=== PATIENT | female | born 1945 | race Caucasian/White ===

== ENCOUNTER 2016-10-28 12:02 | Observation (INO) | payer MEDICARE, OTHER ==
--- NOTE | 2016-10-28 13:01 | ERNOTE ---
Dizziness ER Record Presenting Symptoms: dizziness Time Seen by Provider: 10/28/16 12:26 Source: patient Immunizations: IMMUNIZATION HX Immunizations Up to Date Yes History of Influenza Vaccine Yes Hx Pneumococcal Vaccination Yes Allergies/Adverse Reactions: Allergies Allergy/AdvReac Type Severity Reaction Status Date / Time codeine AdvReac Mild Nausea Verified 10/28/16 12:15 Home Medications: HOME MEDICATIONS Aspirin 81 mg PO DAILY 10/28/16 [Last Taken Unknown] Atenolol [Tenormin] 25 mg PO DAILY 10/28/16 [Last Taken Unknown] Atorvastatin Calcium [Lipitor] 40 mg PO HS 10/28/16 [Last Taken Unknown] Calc/D3/Mag/Zn/Renetta/Georges/[place] [Calcium 600 mg Plus Vit D Tab] 1 each PO DAILY 10/28/16 [Last Taken Unknown] Escitalopram Oxalate [Lexapro] 20 mg PO DAILY 10/28/16 [Last Taken Unknown] Levothyroxine Sodium [Synthroid] 100 mcg PO DAILY 10/28/16 [Last Taken Unknown] Omeprazole [Prilosec] 20 mg PO DAILY 10/28/16 [Last Taken Unknown] - History of Present Illness Narrative: Starting earlier this morning patient had an episode where there was some numbness and tingling around the lips, that has resolved now however while driving on the highway she developed the sudden onset of dizziness, tunnel vision and a posterior headache. The dizziness and the television have resolved and but has persisted and has been a posterior headache, however she states she has chronic posterior headaches. She rates the headache as a 45 on scale of 1-10 and other than her chronic headache she feels back to baseline. Timing and Duration: sudden onset, gone now Noted on awakening:: No Severity: max: moderate Severity: currently: gone Associated Symptoms: Present: headache, light headedness Sense of movement: Present: spinning Decreased ability to stand/walk:: Present: walks w/o assistance Usually:: Present: walks w/o assistance Modifying Factors - (Improves): Reports: nothing Modifying Factors - (Worsens): Reports: nothing Review of Systems - Review of Systems Constitutional: Present: See HPI EYE: Present: no symptoms reported ENT: Present: no symptoms reported Respiratory: Present: no symptoms reported Cardiology: Present: no symptoms reported Gastrointestinal/Abdominal: Present: no symptoms reported Genitourinary: Present: no symptoms reported Musculoskeletal: Present: no symptoms reported Skin: Present: no symptoms reported Neurological: Present: headache Endocrine: Present: no symptoms reported Hematologic/Lymphatic: Present: no symptoms reported Psych: Present: no symptoms reported - Patient's Past Medical History Patient History - Medical: Anxiety, Depression, Hypothyroidism Patient History - Cardiac/Respiratory: Hypertension, Hyperlipidemia, Myocardial Infarction Patient History - Cancer: No Hx of Cancer Patient History - Surgical Procedures: Angioplasty, Cardiac stent, Total Knee Replacement, Tubal Ligation, T & A Patient History - Other: None - Social History Living Situations: home Abuse History: No History of abuse Psych History: Hx of Anxiety, Hx of Depression, Current tx/ever been on anti- depressants or anti-anxiety meds Smoking Status: Never smoker Have you smoked in the past 12 months: No Do you dip or chew tobacco: No Alcohol Use: none Drug Use: none - Immunizations Immunizations Up to Date: Yes Hx Pneumococcal Vaccination: Yes History of Influenza Vaccine: Yes Physical Exam - Physical Exam General Appearance: Present: wd/wn, alert, mild distress - primarily the posterior headache Eye Exam: Normal inspection: bilateral, PERRL: bilateral Ears, Nose, Throat: Present: normal ENT inspection, H, normal pharynx Neck: Present: normal inspection, nontender Respiratory: Present: no respiratory distress, normal breath sounds, no accessory muscle use, chest nontender, lungs clear Cardiovascular/Chest: Present: regular rate, rhythm, no murmur, normal peripheral pulses Gastrointestinal/Abdominal: Present: normal bowel sounds, nontender, nondistended, soft, no organomegaly Rectal Exam: Present: deferred Back Exam: Present: normal inspection, normal range of motion Extremity Exam: Present: normal inspection, non-tender, no edema, normal range of motion Neurological Exam: Present: alert, oriented, normal mood/affect, no motor/ sensory deficits, 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 - Vital Signs Patient's Vital Signs:: I have reviewed the patient's vital signs. Vital Signs: Vital Signs 10/28/16 12:13 Temperature 36.8 C Pulse Rate 64 Respiratory 17 Rate Blood Pressure 174/95 O2 Sat by Pulse 97 Oximetry - EKG EKG: NSR - CT/Ultrasound CT/Ultrasound Narrative: CT of the head was reviewed - Progress/Reassessment Chief Complaint: Dizziness Plan - Plan Plan: While it is somewhat reasonable to assume that the patient simply had an attack of vertigo coupled with a migraine, however we need to at least entertain the possibility of this being a TIA and I believe the patient would benefit from at least an overnight observation and neuro checks and an MR a MRI of the head and neck tomorrow. Dr. Bush has agreed to admit the patient for all the appropriate testing. 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
[2016-10-28 13:04] LABS: Hematocrit 40.4 % (37.0-47.0); Hemoglobin 13.8 gm/dL (12.5-16.0); Mean Cell Volume 89.4 fl (78-100); Mean Corpuscular Hemoglobin 30.5 pg (27-31); Mean Corpuscular Hgb Conc 34.2 g/dl (32-36); Mean Platelet Volume 8.1 fl (6.0-9.5); Neutrophil # 5.5 K/mm3 (1.3-6.0); Neutrophil % 65.3 % (42-75.0); Platelet Count 351 K/mm3 (150-450); Red Blood Count 4.52 M/mm3 (4.2-5.4); Red Cell Distribution Width 13.4 % (11.5-14.0); White Blood Count 8.4 K/mm3 (4.0-10.5)
[2016-10-28 13:16] LABS: INR 0.96 INR (0.90-1.10)
[2016-10-28 13:19] LABS: Albumin * 3.9 gm/dl (3.4-5.0); Anion Gap 11.4 mmol/L (6.8-13.8); BUN/Creatinine Ratio 12.5 (9.0-21.6); Bilirubin, Total 0.6 mg/dL (0.0-1.1); Ca. Corrected For Albumin 9.3 mg/dL (8.4-10.2); Calcium * 9.5 mg/dL (7.9-10.9); Carbon Dioxide 29.8 mmol/L (24-32.6); Magnesium 2.1 mg/dL (1.2-2.8); Potassium 4.2 mmol/L (3.4-4.6); Total Protein 8.2 gm/dL (6.2-8.2)
[2016-10-28] MEDS ORDERED: METOCLOPRAMIDE HCL 5 MG/ML VIAL IV ONE (15:06)
[2016-10-28] MEDS ORDERED: diphenhydrAMINE HCL 50 MG/ML VIAL IV ONE (15:06)
[2016-10-28] MEDS ORDERED: diphenhydrAMINE HCL 50 MG/ML VIAL ONE (15:07)
[2016-10-28] MEDS ORDERED: METOCLOPRAMIDE HCL 5 MG/ML VIAL ONE (15:08)
--- NOTE | 2016-10-28 20:09 | HP ---
Chief Complaint - Chief Complaint Date of Service: 10/28/16 Time of Service: 20:09 Chief Complaint: headache and dizziness History of Present Illness: Joan is a 71 year old female patient of Dr. Dominguez with a PMH of CAD, IA x2 , anxiety/depression, HTN, HLD, GERD, Osetoporosis and hypothyroidism who presented to the ER with c/o headache and dizziness. The patient states that prior to arrival in the ER she developed throbbing and tingling on the back right side of her head for 2 minutes. At this point, it felt as though her head was disconnected and she pulled off to the shoulder of the road. She also developed blurred vision for 5 minutes. 2 weeks ago she developed periodic headaches as well. 2 months ago her , at the age of 71, from COPD. Patient does have a history of migraines, approximately 1-2 per year, but states that these went away. Patient to be admitted for TIA and headache for further workup. - Patient's Past Medical History Patient History - Medical: Anxiety, Depression - 01/13/2014, GERD, Hypothyroidism , Osteoporosis Patient History - Cardiac/Respiratory: Coronary Heart Disease - 04/19/2013, Hypertension, Hyperlipidemia, Myocardial Infarction - inferior IA 1996; inferior IA 05/2007 Patient History - Cancer: No Hx of Cancer Patient History - Surgical Procedures: Angioplasty - angioplasty to circ 1996, Colonoscopy - 2006-WNL, Cardiac stent - stent to RCA 05/2007, Total Knee Replacement - right, 04/22/2006, Tubal Ligation, T & A - 1961, Other - breast bx- 1986-benign; breast [id number]; Patient History - Other: None LMP (females 10-50): Menopausal - Family History Father Family History - Medical: Family History - Cardiac/Respiratory: No pertinent hx Family History - Cancer: Lung Mother Family History - Medical: Family History - Cardiac/Respiratory: Coronary Heart Disease, Myocardial Infarction, Other - AAA; Family History - Cancer: No pertinent family hx - Social History Living Situations: alone Abuse History: No History of abuse Psych History: Hx of Anxiety, Hx of Depression, Current tx/ever been on anti- depressants or anti-anxiety meds Smoking Status: Former smoker - 1 PPD x 17 years - quit at age 38. Have you smoked in the past 12 months: No Do you dip or chew tobacco: No Patient requests Smoking Cessation Consult: No Initiate information on Smoking Cessation: No Alcohol Use: none Drug Use: none - Immunizations Immunizations Up to Date: Yes Hx Pneumococcal Vaccination: Yes History of Influenza Vaccine: Yes Immunizations: IMMUNIZATION HX Immunizations Up to Date Yes History of Influenza Vaccine Yes Hx Pneumococcal Vaccination Yes Allergies/Adverse Reactions: Allergies Allergy/AdvReac Type Severity Reaction Status Date / Time codeine AdvReac Mild Nausea Verified 10/28/16 15:50 Home Medications: HOME MEDICATIONS Aspirin 81 mg PO DAILY 10/28/16 [Last Taken Unknown] Atenolol [Tenormin] 25 mg PO HS 10/28/16 [Last Taken Unknown] Atorvastatin Calcium [Lipitor] 40 mg PO HS 10/28/16 [Last Taken Unknown] Calc/D3/Mag/Zn/Renetta/Georges/[place] [Calcium 600 mg Plus Vit D Tab] 1 each PO DAILY 10/28/16 [Last Taken Unknown] Escitalopram Oxalate [Lexapro] 20 mg PO DAILY 10/28/16 [Last Taken Unknown] Levothyroxine Sodium [Synthroid] 100 mcg PO DAILY 10/28/16 [Last Taken Unknown] Omeprazole [Prilosec] 20 mg PO DAILY 10/28/16 [Last Taken Unknown] Exam - Exam Vital Signs: Vital Signs - Last Taken Temp 36.4 C L 10/28/16 18:20 Pulse 70 10/28/16 18:20 Resp 20 10/28/16 18:20 BP 123/81 10/28/16 18:20 Pulse Ox 97 10/28/16 18:20 Constitutional: Present: Alert, Cooperative, No distress ENT Exam: Present: hearing grossly normal Eye Exam: bilateral eye: normal inspection, PERRL Neck: Present: full range of motion, supple Back Exam: Present: normal inspection, no vertebral tenderness Breasts: Present: Exam deferred Respiratory: Present: normal breath sounds, no respiratory distress, no accessory muscle use Cardiovascular/Chest: Present: normal peripheral pulses, regular rate, rhythm, no chest tenderness, no murmur Peripheral Pulses: dorsalis-pedis (R): 2+, dorsalis-pedis (L): 2+, radial (R): 2 +, radial (L): 2+ Abdomen: Present: Normal bowel sounds, soft, nontender, nondistended /Rectal: Present: Exam deferred Extremity: Present: non-tender, normal inspection, no calf tenderness Skin Exam: Present: normal color, warm/dry, no cyanosis Neurologic: Present: alert, oriented x 3, other - right [id number] abnormal. all other neurological tests wnl. Appearance: Present: appropriate appearance, appropriate insight, neat Diagnostic Studies: Laboratory Results WBC 8.4 K/mm3 (4.0-10.5) 10/28/16 13:00 RBC 4.52 M/mm3 (4.2-5.4) 10/28/16 13:00 Hgb 13.8 gm/dL (12.5-16.0) 10/28/16 13:00 Hct 40.4 % (37.0-47.0) 10/28/16 13:00 MCV 89.4 fl (78-100) 10/28/16 13:00 MCH 30.5 pg (27-31) 10/28/16 13:00 MCHC 34.2 g/dl (32-36) 10/28/16 13:00 RDW 13.4 % (11.5-14.0) 10/28/16 13:00 Plt Count 351 K/mm3 (150-450) 10/28/16 13:00 MPV 8.1 fl (6.0-9.5) 10/28/16 13:00 Immature Gran % (Auto) 0.40 % (0.001-0.429) 10/28/16 13:00 Immature Gran # (Auto) 0.03 K/mm3 (0.000-0.0310) 10/28/16 13:00 Neutrophils % 65.3 % (42-75.0) 10/28/16 13:00 Lymphocytes % 20.8 % (20-51) 10/28/16 13:00 Monocytes % 8.5 % (0.0-9) 10/28/16 13:00 Eosinophils % 3.6 % (0.0-3.0) H 10/28/16 13:00 Basophils % 1.4 % (0.0-1.0) H 10/28/16 13:00 Nucleated RBC % 0.0 k/mm3 (0-1) 10/28/16 13:00 Neutrophils # 5.5 K/mm3 (1.3-6.0) 10/28/16 13:00 Lymphocytes # 1.7 k/mm3 (1.5-3.5) 10/28/16 13:00 Monocytes # 0.7 k/mm3 (0.0-1.0) 10/28/16 13:00 Eosinophils # 0.3 k/mm3 (0.0-0.7) 10/28/16 13:00 Absolute Basophils 0.1 k/mm3 (0.0-0.1) 10/28/16 13:00 PT 10.0 Seconds (9.4-11.4) 10/28/16 13:00 INR (Anticoag Therapy) 0.96 INR (0.90-1.10) 10/28/16 13:00 PTT ([place]) 27.0 Seconds (24-32) 10/28/16 13:00 Sodium 138 mmol/L (132-142) 10/28/16 13:00 Plasma Sodium 138 mmol/L (130-142) 10/28/16 13:00 Potassium 4.2 mmol/L (3.4-4.6) 10/28/16 13:00 Chloride 101 mmol/L (97-106) 10/28/16 13:00 Carbon Dioxide 29.8 mmol/L (24-32.6) 10/28/16 13:00 Anion Gap 11.4 mmol/L (6.8-13.8) 10/28/16 13:00 BUN 10 mg/dL (3-23) 10/28/16 13:00 Creatinine 0.80 mg/dL (0.4-1.4) 10/28/16 13:00 Est GFR (Non-Af Amer) 75 mL/min (60-130) 10/28/16 13:00 BUN/Creatinine Ratio 12.5 (9.0-21.6) 10/28/16 13:00 Random Glucose 130 mg/dL (70-110) H 10/28/16 13:00 Calcium 9.5 mg/dL (7.9-10.9) 10/28/16 13:00 Calcium Adj for Albumin 9.3 mg/dL (8.4-10.2) 10/28/16 13:00 Magnesium 2.1 mg/dL (1.2-2.8) 10/28/16 13:00 Total Bilirubin 0.6 mg/dL (0.0-1.1) 10/28/16 13:00 AST 25 U/L (0-48) 10/28/16 13:00 ALT 40 U/L (19-67) 10/28/16 13:00 Alkaline Phosphatase 83 U/L (50-170) 10/28/16 13:00 Total Protein 8.2 gm/dL (6.2-8.2) 10/28/16 13:00 Albumin 3.9 gm/dl (3.4-5.0) 10/28/16 13:00 Assessment/Plan - Narrative Narrative: TIA - monitor on telemetry - vital signs q 4 hours - MRI of brain in am - MRA of head in am - carotid dopplers in am - further recommendations based on MRI/MRA/Carotids - up with assistance. Headache - patient's description sounds like a tension head, although patient does have a history of migraine headaches in the past - likely exacerbated by recent of patient's . - patient given reglan iv and benadryl iv in ER with relief. 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 transplanted heart: [place] heart Associated angina: without angina Qualified Code(s): I25.10 - Atherosclerotic heart disease of [place] coronary artery without angina pectoris (4) Hx of myocardial infarction Problem: Chronic (5) HTN (hypertension) Problem: Chronic Qualifiers: Hypertension type: essential hypertension Qualified Code(s): I10 - Essential (primary) hypertension (6) HLD (hyperlipidemia) Problem: Chronic Qualifiers: Hyperlipidemia type: unspecified Qualified Code(s): E78.5 - Hyperlipidemia , unspecified (7) Anxiety and depression Problem: Chronic (8) Hypothyroid Problem: Chronic Qualifiers: Hypothyroidism type: acquired Qualified Code(s): E03.9 - Hypothyroidism, unspecified (9) Hx of migraine headaches Problem: Chronic
[2016-10-28] MEDS ORDERED: ATENOLOL 50 MG TABLET ONE (20:20)
[2016-10-28] MEDS ORDERED: ATENOLOL 25 MG TABLET PO SCH (21:00)
[2016-10-28] MEDS ORDERED: ATORVASTATIN CALCIUM 40 MG TABLET PO SCH (21:00)
[2016-10-29] MEDS: LEVOTHYROXINE SODIUM 100 MCG TABLET PO SCH ×2 (05:11→08:33)
--- NOTE | 2016-10-29 05:50 | PN ---
Subjective - Date and Time Seen Date: 10/29/16 Time: 05:40 Subjective Narrative: states she is feeling much better. denies headache. denies weakness. does states she gets claustrophobic with MRI exams. Objective - Review of Systems Generalized/Overall Review: Reports: No Symptoms Reported EENTM: Reports: No Symptoms Reported Respiratory: Reports: No Symptoms Reported Cardiac: Reports: No Symptoms Reported Abdominal: Reports: No Symptoms Reported Genitourinary Symptoms: Reports: No Symptoms Reported Musculoskeletal Complaints: Reports: No Symptoms Reported Neurological: Reports: No Symptoms Reported Skin: Reports: No Symptoms Reported Endocrine: Reports: No Symptoms Reported Misc: All systems neg except as marked - Vitals Vitals: Last Vital Signs Temp 36.7 C 10/29/16 02:15 Pulse 64 10/29/16 02:15 Resp 19 10/29/16 02:15 BP 115/54 10/29/16 02:15 Pulse Ox 96 10/29/16 02:15 - Exam Constitutional: Present: Alert, Oriented x3, Cooperative, No distress ENT Exam: Present: hearing grossly normal Neck: Present: full range of motion, supple Breasts: Present: Exam deferred Respiratory: Present: normal breath sounds, no respiratory distress, no accessory muscle use Cardiovascular/Chest: Present: normal peripheral pulses, regular rate, rhythm, systolic murmur - 2-3/6 Abdomen: Present: Normal bowel sounds, soft, nontender, nondistended /Rectal: Present: Exam deferred Extremity: Present: non-tender, normal inspection, no calf tenderness Skin Exam: Present: normal color, warm/dry, no cyanosis Assessment/Plan Plan Narrative: TIA - monitor on telemetry - vital signs q 4 hours - MRI of brain today - Valium ordered for pre-medication per patient request. - MRA of head today - carotid dopplers today - further recommendations based on MRI/MRA/Carotids - up with assistance. - symptoms have resolved per patient Headache - patient's description sounds like a tension head, although patient does have a history of migraine headaches in the past - likely exacerbated by recent of patient's . - patient given reglan iv and benadryl iv in ER with relief. 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 transplanted heart: [place] heart Associated angina: without angina Qualified Code(s): I25.10 - Atherosclerotic heart disease of [place] coronary artery without angina pectoris (4) Hx of myocardial infarction Problem: Chronic (5) HTN (hypertension) Problem: Chronic Qualifiers: Hypertension type: essential hypertension Qualified Code(s): I10 - Essential (primary) hypertension (6) HLD (hyperlipidemia) Problem: Chronic Qualifiers: Hyperlipidemia type: unspecified Qualified Code(s): E78.5 - Hyperlipidemia , unspecified (7) Anxiety and depression Problem: Chronic (8) Hypothyroid Problem: Chronic Qualifiers: Hypothyroidism type: acquired Qualified Code(s): E03.9 - Hypothyroidism, unspecified (9) Hx of migraine headaches Problem: Chronic
[2016-10-29] MEDS ORDERED: PANTOPRAZOLE SODIUM 20 MG TABLET.DR PO SCH (07:00)
[2016-10-29] MEDS ORDERED: ESCITALOPRAM OXALATE 10 MG TAB PO SCH (09:00)
[2016-10-29] MEDS ORDERED: ASPIRIN 81 MG TAB.CHEW PO SCH (09:00)
[2016-10-29 10:23] VITALS: BP 155/84
[2016-10-29] MEDS ORDERED: DIAZEPAM 5 MG TABLET PO PRN ×2 (11:00→12:00)
--- NOTE | 2016-10-29 17:01 | DS ---
(1) blurred vision followed by headache Problem: Acute (2) CAD (coronary artery disease) Diagnosis(s): S/P IWMI - 1996[ angioplasty CX; S/P IWMI-2007 [ stent to RCA x2]. Problem: Chronic Qualifiers: Coronary Disease-Associated Artery/Lesion type: [place] artery [place] vs. transplanted heart: [place] heart (3) HLD (hyperlipidemia) Problem: Chronic Qualifiers: Hyperlipidemia type: unspecified Qualified Code(s): E78.5 - Hyperlipidemia , unspecified (4) HTN (hypertension) Problem: Chronic Qualifiers: Hypertension type: essential hypertension Qualified Code(s): I10 - Essential (primary) hypertension (5) Chronic GERD Problem: Chronic (6) Hypothyroidism Problem: Chronic Qualifiers: Hypothyroidism type: unspecified Qualified Code(s): E03.9 - Hypothyroidism , unspecified Description of Stay: DATE OF ADMISSION: 10/28/2016. DATE OF DISCHARGE: 10/29/2016. DIAGNOSTICS: CT HEAD W/O 10/28/2016. MRI BRAIN: 10/29/2016. MRA HEAD: 10/29/2016. CAROTID ULTRASOUND: 10/29/2016. DISCHARGE SUMMARY: Joan Staples is a 71-year-old WF with a history of HTN, HLD, CAD who was driving felt disoriented and pulled off the road. She had blurred vision for about 5 minutes. She had intermittent headaches for the last 2 weeks and was under stress as her of COPD 2 months ago. Evaluation in the ER was unremarkable. CT head W/O showed mild chronic microvascular ischemic disease of white matter. Correlate for subacute to chronic infarct within RT occipital lobe. No acute intracranial hemorrhage detected. Discussed with neurology at [facility] suggested getting an MRA of head and MRI of brain. MRI of head W/W/O: No evidence of acute infarct or intracranial mass. Progression in number of nonspecific T2 bright signal within the periventricular /subcortical white matter of frontal lobes, and pontine white matter which could represent progression of microvascular ischemic disease of the brain [D/D included sequelae of demyelinating process or infection or vasculitis]. Nearly empty sella turcica. MRA head W/O: No evidence of intracranial aneurysm. Somewhat narrowed appearance of the branches of the M3 segments of the LT MCA. Consider underlying atherosclerosis versus vasospasm. Absent appearance of the LT posterior communicating artery. Consider normal variant or occlusion. Mild vertebral basilar ectasia noted. US carotid duplex ultrasound bilateral: Flow noted in bilateral vertebral arteries. MED and LICA: Stenoses approximating <50% calculated in referencedby NASCET criteria. RECA and LECA: Negative. The patient was observed overnight with no recurrence of symptoms. Patient will be discharged on baby aspirin daily. More than 50 minutes was spent with patient and family in discussing test results, reconciliation of medications, plan of care, consulting urology at [facility], preparation and dictating discharge summary. Procedures Performed: none Results and Findings: Laboratory Tests 10/28/16 13:00 WBC 8.4 Hgb 13.8 Hct 40.4 Plt Count 351 10/28/16 13:00 Plasma Sodium 138 Potassium 4.2 Chloride 101 Carbon Dioxide 29.8 BUN 10 Creatinine 0.80 Est GFR (Non-Af Amer) 75 Random Glucose 130 H Calcium Adj for Albumin 9.3 Magnesium 2.1 Total Bilirubin 0.6 AST 25 ALT 40 Alkaline Phosphatase 83 Total Protein 8.2 Albumin 3.9 Discharge Disposition: Home self care Disposition: Home self-care Condition: Undetermined Discharge Diet: Low fat/chol, High Fiber Referrals: Rosette Dominguez MD [Primary Care Provider] - Problem Oriented Discharge Instructions to Patient/Family: Vertigo, Easy-to- Read, Dizziness, [id number] Additional Patient Instructions (free text): Vitamin D3 2000 units daily with food. Calcium from food from 3 different sources. Appt with PCP 2 weeks, With Dr. Dominguez on 11-12-16 @ 2:00pm. Complete Home Medications List: Complete Home Medication List: Aspirin 81 mg PO DAILY 10/28/16 Atenolol [Tenormin] 25 mg PO HS 10/28/16 Atorvastatin Calcium [Lipitor] 40 mg PO HS 10/28/16 Calc/D3/Mag/Zn/Renetta/Georges/[place] [Calcium 600 mg Plus Vit D Tab] 1 each PO DAILY 10/28/16 Escitalopram Oxalate [Lexapro] 20 mg PO DAILY 10/28/16 Levothyroxine Sodium [Synthroid] 100 mcg PO DAILY 10/28/16 Omeprazole [Prilosec] 20 mg PO DAILY 10/28/16
[2016-10-29] MEDS ORDERED: ROSUVASTATIN CALCIUM 20 MG TABLET PO SCH (21:00)
== END 2016-10-29 17:49 | disposition home or self-care (01) ==
LOC: ER 12:02 → MS 15:06
PROVIDERS: ADMIT Internal Medicine; ATTEND Internal Medicine
DX: G45.9 Transient cerebral ischemic attack, unspecified (principal); I10 Essential (primary) hypertension; I25.10 Atherosclerotic heart disease of native coronary artery without angina pectoris; Z98.61 Coronary angioplasty status; Z87.891 Personal history of nicotine dependence; E78.5 Hyperlipidemia, unspecified; E03.9 Hypothyroidism, unspecified; R51 Headache
CPT/HCPCS: 36415; 70450; 70544; 70553; 80053; 83735; 85025; 85610; 85730; 93005; 93880; 96374; 96375; 99284; G0378